=== PATIENT | male | born 1980 | race Caucasian/White ===

== ENCOUNTER 2017-03-26 11:06 | Emergency (ER) | payer MEDICAID ==
[2017-03-26 11:15] VITALS: BMI 30.7
[2017-03-26 11:19] VITALS: BP 130/89; PULSE 71; RESP 17; TEMP 98.3; O2SAT 98
--- NOTE | 2017-03-26 13:22 | ED PDOC ---
HPI: General Adult Time Seen by Provider: 03/26/17 11:46 Chief Complaint (Nursing): Male Genitourinary History Per: Patient Additional Complaint(s): Pt. states today he noticed 2 drops of blood in his urine at the end of micturition. Denies pain, trauma, back pain, flank pain, dysuria, frequency, urgency. Past Medical History Reviewed: Historical Data, Nursing Documentation, Vital Signs Vital Signs: Last Vital Signs Temp 98.3 F 03/26/17 11:15 Pulse 71 03/26/17 11:15 Resp 17 03/26/17 11:15 BP 130/89 03/26/17 11:15 Pulse Ox 98 03/26/17 19:53 - Medical History PMH: Diabetes - Family History Family History: States: No Known Family Hx - Home Medications Home Medications: Ambulatory Orders Medication Instructions Recorded Metformin Hydrochloride [Metformin] 500 mg PO BID #60 tab 02/25/15 - Allergies Allergies/Adverse Reactions: Allergies Allergy/AdvReac Type Severity Reaction Status Date / Time No Known Allergies Allergy Verified 03/26/17 11:32 Review of Systems ROS Statement: Except As Marked, All Systems Reviewed And Found Negative Genitourinary Male: Positive for: Hematuria Physical Exam - Physical Exam Appears: Positive for: Well, Non-toxic, No Acute Distress Skin: Positive for: Normal Color, Warm. Negative for: Rash Gastrointestinal/Abdominal: Positive for: Normal Exam, Bowel Sounds, Soft. Negative for: Tenderness Male Genital Exam: Positive for: normal genitalia. Negative for: bleeding, scrotum tenderness (R), scrotum tenderness (L), testicular tenderness (R), testicular tenderness (L), urethral discharge Back: Positive for: Normal Inspection. Negative for: L CVA Tenderness, R CVA Tenderness - ECG O2 Sat by Pulse Oximetry: 98 - Progress ED Course And Treament: Pt. informed results and instructed to f/u with urologist. GC/Chlamydia cultures sent. Disposition - Clinical Impression Clinical Impression: Hematuria - Patient ED Disposition Is Patient to be Admitted: No - Disposition Referrals: Shital Zuniga [Outside] Disposition: Routine/Home Disposition Time: 15:10 Condition: STABLE Instructions: Acute Hematuria (ED) Forms: Screenmailer (Brazilian) Print Language: SAMI
[2017-03-26 13:52] LABS: URINE BILIRUBIN NEGATIVE (NEGATIVE); URINE BLOOD SMALL (NEGATIVE); URINE COLOR YELLOW (YELLOW); URINE GLUCOSE (UA) NEG (Normal); URINE KETONE NEGATIVE (NEGATIVE); URINE LEUKOCYTE ESTERASE NEG Leu/uL (Negative); URINE PROTEIN NEGATIVE (NEGATIVE); URINE UROBILINOGEN 0.2-1.0 mg/dL (0.2-1.0); WBC URINE 1 /hpf (0-5)
[2017-03-26 14:03] LABS: RBC URINE 8 /hpf (0-3)
== END 2017-03-26 15:34 | disposition home or self-care (01) ==
LOC: H.ER 11:06
DX: R31.9 Hematuria, unspecified (principal); E11.9 Type 2 diabetes mellitus without complications; Z79.84 Long term (current) use of oral hypoglycemic drugs